=== PATIENT | male | born 1960 | race Caucasian/White ===

== ENCOUNTER 2017-12-23 21:57 | Inpatient (IN) | payer OTHER, MEDICAID ==
[~2017-12-23] VITALS: Ht 182.9 cm; Wt 122.9 kg
[2017-12-24] VITALS (7 sets, daily range): BP systolic 103–132; BP diastolic 47–81
[2017-12-24 01:30] LABS: CALCIUM 9.4 mg/dL (8.5-10.1); CARBON DIOXIDE 28.4 mmol/L (21-32); CHLORIDE SERUM 102 mmol/L (98-107); CREATININE SERUM 0.8 mg/dL (0.7-1.3); GFR1 > 60 mL/min; GLUCOSE SERUM 314 mg/dL (74-106); POTASSIUM SERUM 3.7 mmol/L (3.5-5.1); SODIUM SERUM 137 mmol/L (136-145)
[2017-12-24 01:41] LABS: BASOPHIL % 0.9 % (0-2); PLATELET COUNT 250 x10^3mcL (130-400); RED CELL DISTRIBUTION WIDTH 12.8 % (11.5-14.5)
[2017-12-24] MEDS ORDERED: METFORMIN HYDR500 M1 PO (02:29)
[2017-12-24] MEDS ORDERED: LANTUS SOLOS100 U/M1 SQ (02:29)
[2017-12-24] MEDS ORDERED: LISINOPRIL10 MG PO (02:30)
[2017-12-24] MEDS ORDERED: ASPIR 8181 MG PO (02:30)
[2017-12-24] MEDS ORDERED: LIPI10 PO (02:30)
[2017-12-24] MEDS ORDERED: LANTUS SOLOS100 U/M1 SC (02:56)
[2017-12-24 03:07] LABS: LIPASE 109 IU/L (73-393); MAGNESIUM 1.9 mg/dL (1.8-2.4); PHOSPHOROUS 3.8 mg/dL (2.5-4.9)
[2017-12-24 03:11] LABS: AMYLASE 15 U/L (25-115); CHOLESTEROL 217 mg/dL (<200); CHOLESTEROL/HDL RATIO 6.4; HDL CHOLESTEROL 34 mg/dL (40-60); T3 TOTAL 1.26 ng/mL; TRIGLYCERIDES 420 mg/dL (<150)
[2017-12-24 03:48] LABS: FREE T4 0.9 ng/dL (0.76-1.46); FREE THYROXINE INDEX 1.9 ug/dL (1.4-4.5); T4(THYROXINE) 5.9 ug/dL (4.7-13.3)
[2017-12-24 04:26] LABS: UA SPECIFIC GRAVITY 1.025 (1.005-1.035); microscopic required? YES; urine erythrocyte TRACE (NEGATIVE)
[2017-12-24 04:41] LABS: AMPHETAMINE QUAL UR POSITIVE (See below)
[2017-12-24 06:51] LABS: BASOPHIL % 0.9 % (0-2); PLATELET COUNT 225 x10^3mcL (130-400); RED CELL DISTRIBUTION WIDTH 12.8 % (11.5-14.5)
[2017-12-24 07:00] LABS: CALCIUM 9.2 mg/dL (8.5-10.1); CARBON DIOXIDE 28.7 mmol/L (21-32); CHLORIDE SERUM 102 mmol/L (98-107); CREATININE SERUM 0.9 mg/dL (0.7-1.3); GFR1 > 60 mL/min; GLUCOSE SERUM 285 mg/dL (74-106); POTASSIUM SERUM 3.5 mmol/L (3.5-5.1); SODIUM SERUM 136 mmol/L (136-145)
[2017-12-25 05:22] VITALS: BP 127/63
[2017-12-25 06:53] LABS: BASOPHIL % 0.9 % (0-2); PLATELET COUNT 220 x10^3mcL (130-400); RED CELL DISTRIBUTION WIDTH 12.9 % (11.5-14.5)
[2017-12-25 07:02] LABS: CALCIUM 8.3 mg/dL (8.5-10.1); CARBON DIOXIDE 29.4 mmol/L (21-32); CHLORIDE SERUM 102 mmol/L (98-107); CREATININE SERUM 0.8 mg/dL (0.7-1.3); GFR1 > 60 mL/min; GLUCOSE SERUM 229 mg/dL (74-106); POTASSIUM SERUM 3.7 mmol/L (3.5-5.1); SODIUM SERUM 136 mmol/L (136-145)
[2017-12-25 08:45] VITALS: BP 118/57
[2017-12-25 12:44] VITALS: BP 122/62
[2017-12-25] MEDS ORDERED: XARELTO10 M1 PO ×2 (14:13→14:20)
[2017-12-25 14:32] VITALS: BP 122/62
== END 2017-12-25 14:55 | disposition home or self-care (01) | DRG 299 ==
LOC: ED 21:57 → DU 12-24 01:52
PROVIDERS: Emergency Medicine; Internal Medicine
DX: I82.432 Acute embolism and thrombosis of left popliteal vein (principal); N17.0 Acute kidney failure with tubular necrosis; D68.59 Other primary thrombophilia; I82.512 Chronic embolism and thrombosis of left femoral vein; E11.65 Type 2 diabetes mellitus with hyperglycemia; E78.5 Hyperlipidemia, unspecified; R80.9 Proteinuria, unspecified; M47.896 Other spondylosis, lumbar region; E66.9 Obesity, unspecified; Z68.35 Body mass index [BMI] 35.0-35.9, adult
CPT/HCPCS: 82962; 83880; 84439; J1644; J1815; J1885; J7030; Q0092

== ENCOUNTER 2019-07-15 14:23 | Emergency (ER) | payer OTHER, MEDICAID ==
[~2019-07-15] VITALS: Ht 182.9 cm; Wt 120.2 kg
[~2019-07-15 14:23] MED LIST: ASPIR 8181 MG PO; LANTUS SOLOS100 U/M1 SC; LANTUS SOLOS100 U/M1 SQ; LIPI10 PO; LISINOPRIL10 MG PO; METFORMIN HYDR500 M1 PO; XARELTO10 M1 PO
[2019-07-15 14:33] VITALS: Ht 182.9 cm; Wt 120.2 kg
[2019-07-15 19:09] VITALS: BP 152/65
== END 2019-07-15 19:09 | disposition home or self-care (01) ==
LOC: ED 14:23
DX: S49.91XA Unspecified injury of right shoulder and upper arm, initial encounter (principal); M75.31 Calcific tendinitis of right shoulder; E11.9 Type 2 diabetes mellitus without complications; F17.210 Nicotine dependence, cigarettes, uncomplicated; I10 Essential (primary) hypertension; E66.9 Obesity, unspecified; Z68.35 Body mass index [BMI] 35.0-35.9, adult; Z98.890 Other specified postprocedural states; W01.0XXA Fall on same level from slipping, tripping and stumbling without subsequent striking against object, initial encounter; Y93.89 Activity, other specified; Y92.89 Other specified places as the place of occurrence of the external cause; Y99.8 Other external cause status
CPT/HCPCS: 99406